=== PATIENT | male | born 1990 | race Caucasian/White ===

== ENCOUNTER 2018-03-06 14:31 | Emergency (ER) | payer OTHER ==
--- NOTE | 2018-03-06 14:49 | PDOC ---
History of Present Illness - General Chief Complaint: Lightheaded Stated Complaint: ALLERGIC REACTION Time Seen by Provider: 03/06/18 14:49 - History of Present Illness Initial Comments: 03/06/18 15:12 The patient is a 27 year old male with no significant PMH who presents for evaluation of lightheadedness. The patient reports that he underwent his medical eval for the 1 day ago and received several vaccinations. He reports experiencing a sensation of lightheadedness with associated SOB earlier today with tingling in his hands and a sensation of "shakiness" prompting his presentation to the ED for evaluation. He notes that he has been working out normally and noted some intermittent sweating at night. He otherwise denies fevers, chills, chest pain, nausea, vomiting, abdominal pain, or changes with urination or bowel movements. Past History - Past Medical History Allergies/Adverse Reactions: Allergies Allergy/AdvReac Type Severity Reaction Status Date / Time No Known Allergies Allergy Verified 03/06/18 14:42 Home Medications: Ambulatory Orders NK [No Known Home Medication] 03/06/18 COPD: No - Immunization History Immunization Up to Date: Yes - Suicide/Smoking/Psychosocial Hx Smoking History: Current some day smoker Have you smoked in the past 12 months: Yes Number of Cigarettes Smoked Daily: 0 Information on smoking cessation initiated: No Hx Alcohol Use: No Drug/Substance Use Hx: No Substance Use Type: None Review of Systems - Review of Systems Comments:: 03/06/18 15:25 Constitutional: No fevers, chills, fatigue, malaise HEENT: No Rhinorrhea, nasal congestion, visual changes Cardiovascular: Lightheadedness. No chest pain, syncope, palpitations, Respiratory: SOB. No Cough, Hemoptysis, Gastrointestinal: No Abdominal pain, Nausea, Vomiting, Constipation, Diarrhea, Melena Genitourinary: No Dysuria, Frequency, Urgency, Hesitancy, Hematuria, Flank pain Musculoskeletal: No Myalgia, arthralgia Skin: No rashes, itching, bruising, pallor Neurologic: No Headache, Dizziness, Numbness, Weakness, or Tingling Psychiatric: No Hallucinations. No SI or HI *Physical Exam - Vital Signs Last Vital Signs Temp Pulse Resp BP Pulse Ox 98.4 F 85 20 142/79 97 03/06/18 14:42 03/06/18 14:42 03/06/18 14:42 03/06/18 14:42 03/06/18 14:42 - Physical Exam Comments: 03/06/18 15:26 General Appearance: Nourished. Anxious appearing on exam. No Apparent Distress HEENT: EOMI, GEORGIE. No Pharyngeal Erythema, Tonsillar Exudate, Tonsillar Erythema Neck: No Cervical Lymphadenopathy Respiratory/Chest: Lungs Clear, Normal Breath Sounds. No Crackles, Rales, Rhonchi, Wheezing Cardiovascular: Regular Rhythm, Regular Rate. No Murmur, Gallops, Rubs Gastrointestinal/Abdominal: Normal Bowel Sounds, Soft. No Guarding, Rebound, Tenderness Musculoskeletal: No CVA Tenderness Extremity: Normal Capillary Refill Integumentary: Normal Color, Dry, Warm Neurologic: client program manager II-XII NML intact, Fully Oriented, Alert, Normal Mood/Affect, Normal Response, Heart Score/ECG Review #1 ECG reviewed & interpreted by me at: 16:43 General ECG Interpretation: Sinus Rhythm, Normal Rate, Normal Intervals, No acute ischemic changes ED Treatment Course - LABORATORY CBC & Chemistry Diagram: 03/06/18 15:30 03/06/18 15:30 Medical Decision Making - Medical Decision Making 03/06/18 15:27 The patient is a 27 year old male with no significant PMH who presents for evaluation of lightheadedness. Differential includes but is not limited to: Rhabdomyolysis, Arrhythmia, Dehydration, Infectious, Metabolic derangement. Given the patient's history, we will obtain a cbc, cmp, mag, tsh, cpk, ekg, chest plain film to evaluate further for possible etiologies. We will treat with iv fluids here in the ED and continue to monitor and reassess in the meantime. 03/06/18 17:35 CBC, cmp, mag, tsh, cpk are unremarkable. Chest plain film is unremarkable as preliminarily read by ER physician. The patient reports mild improvement in his symptoms. We discussed HI and SI with the patient who denies either and denies any depressive symptoms here in the ER on evaluation. We are comfortable discharging the patient home at this time with primary care provider follow up. We discussed the results, plan, and strict return precautions with the patient who voiced understanding and is agreeable with the plan. *DC/Admit/Observation/Transfer Diagnosis at time of Disposition: Lightheadedness - Discharge Dispostion Disposition: HOME Condition at time of disposition: Good Admit: No - Referrals Referrals: Saeed Cr MD [Staff Physician] - - Patient Instructions Printed Discharge Instructions: DI for Dizziness-Nonvertigo Additional Instructions: Please return to the ER if you experience concerning or worsening symptoms including worsening lightheadedness, fainting, vomiting, abdominal pain, or other concerning symptoms. Your lab results were normal here in the ER. Your chest x-ray is normal as well. It is important that you call to schedule a follow up appointment with your primary care provider within 2-3 days to discuss your ER visit and further management of your symptoms. - Post Discharge Activity
--- NOTE | 2018-03-06 14:53 | PDOC ---
Attending Attestation - HPI HPI: 03/06/18 15:47 The patient is a 27 year old male, with no significant past medical history, who presents to the emergency department with, lightheadedness. As per patient, he had his medical evaluation yesterday where he was given multiple vaccinations for the . The patient reports associated shortness of breath and shakiness. He reports intermittent sweating at night, however, has been able to do his normal workouts. He denies any recent fevers, chills, or headaches. He denies any recent nausea, vomit, diarrhea or constipation. He denies any recent chest pain. He denies any recent dysuria, frequency, urgency or hematuria. Allergies: NKA Past surgical history: None reported. Social History: Nonsmoker. Denies EtOH use and recreational drug use. - Physicial Exam PE: 03/06/18 15:47 +Constitutional: Anxious upon exam. Awake, alert, oriented. Head: Normocephalic. Atraumatic Eyes: PERRL. EOMI. Conjunctivae are not pale. ENT: Mucous membranes are moist and intact. Posterior pharynx without exudates or erythema. Uvula midline. Neck: Supple. Full ROM. No lymphadenopathy. Cardiovascular: Regular rate. Regular rhythm. S1, S2 regular. Distal pulses are 2+ and symmetric. Pulmonary/Chest: No evidence of respiratory distress. Clear to auscultation bilaterally No wheezing, rales or rhonchi. Abdominal: Soft and non-distended. There is no tenderness. No rebound, guarding or rigidity. No organomegaly. No palpable masses. Good bowel sounds. Back: No CVA tenderness. Musculoskeletal: No edema. No cyanosis. No clubbing. Full range of motion in all extremities. No calf tenderness. Radial/pedal pulses are intact and 2+ bilaterally Skin: Skin is warm and dry. No petechiae. No purpura. +Neurological: Bilateral tremor of the upper extremities. Alert and oriented to person, place, and time. Cranial nerves II-XII are grossly intact. Normal speech. Strength is grossly symmetric. No sensory deficits. Psychiatric: Good eye contact. <Felice Casillas - Last Filed: 03/06/18 15:47> - Resident Resident Name: Timbo Arvizu - ED Attending Attestation I have performed the following: I have examined & evaluated the patient, The case was reviewed & discussed with the resident, I agree w/resident's findings & plan, Exceptions are as noted - Medical Decision Making 03/06/18 14:53 I, Dr. Niya Cotto DO, attest that this document has been prepared under my direction and personally reviewed by me in its entirety. I further attest, that it accurately reflects all work, treatment, procedures and medical decision -making performed by me. 03/06/18 15:19 a/p: 27yo male with lightheaded and sob today -pt appears anxious -will check tsh, dimer -will check labs, hx of palpitations but never been lightheaded or sob -no palpitaitons at this time and denies feeling anxious -mild tremor of hand -will obtain mag, electrolytes, ekg, cxr -will monitor and reassess <Niya Cotto - Last Filed: 03/06/18 16:42> Heart Score/ECG Review - ECG Intrepretation Comment:: 03/06/18 16:41 sinus at 71, nl axis, nl interval, no acute st/t wave findings <Niya Cotto - Last Filed: 03/06/18 16:42> Attestations - Attestations 03/06/18 15:50 Documentation prepared by Felice Casillas, acting as medical supply technician for Niya Cotto DO. <Felice Casillas - Last Filed: 03/06/18 15:47>
[2018-03-06 14:54] VITALS: BMI 27.7
[2018-03-06] MEDS ORDERED: SODIUM CHLORIDE 1,000 ML IV STA (15:04)
[2018-03-06 15:58] LABS: BASO % 0.4 % (0-2.0); EOS % 1.2 % (0-4.5); HEMATOCRIT 39.9 % (35.4-49); HEMOGLOBIN 14.4 GM/dL (11.7-16.9); LYMPH % 26.2 % (8-40); MCH 31.2 pg (25.7-33.7); MCHC 36.2 g/dl (32.0-35.9); MEAN CELL VOLUME 86.2 fl (80-96); MEAN PLT VOLUME 10.2 fl (7.5-11.1); MONO % 12.7 % (3.8-10.2); NEUT % 59.5 % (42.8-82.8); PLATELET COUNT 129 K/MM3 (134-434); RBC 4.63 M/mm3 (4.00-5.60); RDW 12.9 % (11.9-15.9); URINE APPEARANCE CLEAR; URINE BILIRUBIN NEGATIVE (<2.0 mg/dL); URINE COLOR STRAW; URINE GLUCOSE (UA) NEGATIVE (NEGATIVE); URINE KETONE NEGATIVE (NEGATIVE); URINE LEUK ESTERASE NEGATIVE (NEGATIVE); URINE NITRITE NEGATIVE (NEGATIVE); URINE PROTEIN NEGATIVE (NEGATIVE); URINE UROBILINOGEN NEGATIVE mg/dL (0.2-1.0); WHITE BLOOD COUNT 4.9 K/mm3 (4.0-10.0)
[2018-03-06 16:21] LABS: ALBUMIN 4.4 g/dl (3.4-5.0); ANION GAP 6 (8-16); BILIRUBIN,TOTAL 0.6 mg/dL (0.2-1.0); BLOOD UREA NITROGEN 15 mg/dL (7-18); CALCIUM 8.4 mg/dL (8.5-10.1); CHLORIDE 106 mmol/L (98-107); CO2 25 mmol/L (21-32); GLUCOSE,RANDOM 89 mg/dL (74-106); MAGNESIUM 2.3 mg/dL (1.8-2.4); POTASSIUM 3.9 mmol/L (3.5-5.1); SGOT/AST 26 U/L (15-37); SGPT/ALT 39 U/L (12-78); SODIUM 137 mmol/L (136-145); TOT PROT 7.6 g/dl (6.4-8.2)
[2018-03-06 16:26] LABS: ALK PHOS 71 U/L (45-117)
[2018-03-06 17:31] LABS: COCAINE, UR NEGATIVE ng/ml (CUTOFF=300); METHADONE, UR NEGATIVE ng/ml (CUTOFF=300); OPIATES, URI NEGATIVE ng/ml (CUTOFF=300); PHENCYCLIDINE,URINE NEGATIVE ng/ml (CUTOFF=25); URINE AMPHETAMINES NEGATIVE ng/ml (CUTOFF=500); URINE BARBITURATES NEGATIVE ng/ml (CUTOFF=200); URINE BENZODIAZEPINES NEGATIVE ng/ml (CUTOFF=200)
[2018-03-06 18:12] VITALS: BP 129/72; PULSE 69; TEMP 98.1
--- NOTE | 2018-03-07 12:37 | EKG ---
Test Reason : Blood Pressure : / mmHG Vent. Rate : 071 BPM Atrial Rate : 071 BPM P-R Int : 180 ms QRS Dur : 104 ms QT Int : 404 ms P-R-T Axes : 046 038 026 degrees QTc Int : 439 ms NORMAL SINUS RHYTHM NORMAL ECG NO PREVIOUS ECGS AVAILABLE Confirmed by JULIETA GODDARD MD ([id number]) on 03/07/2018 12:37:38 PM Referred By: Confirmed By:JULIETA GODDARD MD
== END 2018-03-06 18:12 | disposition home or self-care (01) ==
LOC: JER 14:31
PROC: 3E0337Z Introduction of Electrolytic and Water Balance Substance into Peripheral Vein, Percutaneous Approach (ICD-10-PCS; principal; 2018-03-06)
DX: R42 Dizziness and giddiness (principal)
CPT/HCPCS: 36415; 71046-TC-FY; 80053; 80307; 81003; 82550; 82553; 83735; 84443; 85025; 85379; 93005; 93010; 99284-25; J7030